=== PATIENT | male | born 1990 ===

== ENCOUNTER 2023-08-16 18:18 | Outpatient (REF) | payer OTHER, SELFPAY ==
[2023-08-16 22:01] LABS: ALT 44 U/L (16-63); AST 31 U/L (15-37); Albumin 4.2 g/dL (3.4-5.0); Alkaline Phosphatase 88 U/L (46-116); Anion Gap 1.9 mmol/L (3-11); BUN 18 mg/dL (7-18); Bilirubin, Total 0.6 mg/dL (0.2-1.0); CO2 31.1 mmol/L (21.0-32.0); CREATININE 1.1 mg/dL (0.70-1.30); Calcium 9.1 mg/dL (8.5-10.1); Calculated LDL 125 mg/dL (<100); Chloride 105 mmol/L (98-107); Cholesterol 209 mg/dL (<200); Estimated GFR 89.78 (mL/min/1.73m2); Glucose 84 mg/dL (74-106); HDL Cholesterol 71 mg/dL (40-60); Potassium 3.9 mmol/L (3.5-5.1); Sodium 138 mmol/L (136-145); Total Protein 7.8 g/dL (6.4-8.2); Triglyceride 66 mg/dL (<150)
== END 2023-08-16 18:19 | disposition home or self-care (01) ==
LOC: NCHCN 18:18
PROVIDERS: Visit Provider Family Medicine
DX: E78.5 Hyperlipidemia, unspecified (principal)
CPT/HCPCS: 80053; 80061